=== PATIENT | male | born 1940 | race Caucasian/White ===

== ENCOUNTER 2016-09-14 09:54 | Day surgery (SDC) | payer MEDICARE ==
[~2016-09-14] VITALS: Ht 190.5 cm; Wt 108.0 kg
[~2016-09-14 09:54] MED LIST: AMLO10TA3 PO; ASCO-294 PO; ASPI325T32 PO; CHOL200047 PO; FERR325C PO; LOSA50TA37 PO; METO25TA6 PO; NITR0.4T6 SL; OMEG-38 PO; PANT40TA3 PO; PRAV40TA PO; SPIR25TA3 PO; Sodium Chloride LOK Flush 10 mL Syringe IV PRN; TAMS0.4C98 PO; UBID10CA4 PO; VITA400C66 PO; fentaNYL-PF 50 mCg/mL 2 mL Inj IVPUSH PRN
[2016-09-14 10:25] VITALS: BP 147/91; PULSE 56; RESP 16; O2SAT 97
[2016-09-14] MEDS: 0.9% Sodium Chloride 1,000 ML IV SCH ×3 (10:34→11:16)
[2016-09-14 11:26] VITALS: BP 124/77; PULSE 53; RESP 15; O2SAT 94
[2016-09-14 11:35] VITALS: BP 114/72; PULSE 53; RESP 15; O2SAT 94
[2016-09-14 11:46] VITALS: BP 121/79; PULSE 54; RESP 15; O2SAT 92
--- NOTE | 2016-09-14 11:52 | ENDO ---
[address] [address] ENDOSCOPY PROCEDURE PATIENT: OLIVE DELEON : 1940 MR#: [id number] ADMIT: 09/14/2016 JOB ID: [id number] DATE: 09/14/2016 PRIMARY PROVIDER: Maximiliano Espitia D.O. PROCEDURE: Esophagogastroduodenoscopy with biopsy. INDICATION: A 76-year-old male with longstanding reflux reporting for Raymond screening. He has not been able to decrease his pantoprazole down from 40 mg twice a day without becoming symptomatic. EQUIPMENT: GIF H 180 J. SEDATION: 1. 4 mg Versed. 2. 75 mcg fentanyl. COMPLICATIONS: None identified. PROCEDURAL INFORMATION: After the risks and benefits were explained, written and verbal informed consent was obtained. The patient was brought into the endoscopy suite and placed into the left lateral decubitus position. Sedation was achieved as above. The scope introduced into the mouth through the bite block, and advanced to the second portion the duodenum. The scope was slowly withdrawn to carefully examine the mucosa for any defects or lesions. Retroflexed views were accomplished in the stomach. The stomach was decompressed. Scope removed from the patient who tolerated the procedure reasonably well. He was somewhat combative and required an extra set of hands during the endoscopy to keep him from reaching up and attempting to pull the scope and/or adjust his mouth guard. FINDINGS: 1. Duodenum: No significant pathology identified from the bulb through to the second portion. 2. Stomach: The patient had an erosive nodular erythematous streaky gastropathy all through the antrum. One of these focal eroded nodules was biopsied and submitted for histopathology. Retroflexed views of the LES were otherwise unremarkable. The patient had a hiatal hernia, sliding in nature. No other gastric pathology identified. 3. Esophagus: The squamocolumnar junction generally correlated with the top of the gastric folds. The GEJ was at about 44 cm from the incisors. In the 7 o'clock location, there was perhaps very mild extension of the squamocolumnar junction up into the tubular esophagus. I biopsied the very apex of this in order to exclude the presence of specialized intestinal metaplasia. I did not see any evidence of acute erosive change. No strictures. No nodularity. No concerning features for neoplasia. The remainder of the esophagus appeared unremarkable. ENDOSCOPIC DIAGNOSES: 1. Sliding hiatal hernia. 2. 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 3. Erosive gastropathy. RECOMMENDATIONS: 1. Await histopathology. 2. If Raymond's is identified, then an appropriately timed surveillance will be arranged. 3. It would be reasonable to see how the patient does reducing pantoprazole down to the 20 mg tablet and continuing this at a twice daily schedule.
--- NOTE | 2016-09-15 13:56 | PATH ---
SURGICAL PATHOLOGY Attending Physician:Marc Oswald CASE STATUS: Signed Out PATIENT NAME: OLIVE DELEON PID: [id number] : 1940 DATE COLLECTED:09/14/2016 22:31 SPECIMEN: 1: Esophagus, Biopsy 2: Stomach, Antrum, Biopsy CLINICAL HISTORY: GASTRITIS 1). DISTAL ESOPHAGUS BIOPSY 2). ANTRAL BIOPSY FINAL DIAGNOSIS: 1.DISTAL ESOPHAGUS BIOPSY: SMALL FRAGMENT OF GASTRIC CARDIA-TYPE MUCOSA NEGATIVE FOR SPECIALIZED METAPLASIA OF DAVIDSON' S-TYPE ESOPHAGUS. No squamous mucosa identified. Negative for dysplasia and malignancy. 2.GASTRIC ANTRAL BIOPSY: MILD CHRONIC GASTRITIS, FOCALLY ACTIVE, WITH PROMINENT REACTIVE EPITHELIAL CHANGES. Immunohistochemistry for Helicobacter pending, to be reported by addendum. Negative for intestinal metaplasia. Negative for dysplasia and malignancy. [id number] NOTE: The reactive epithelial changes present in part 2 are quite prominent. Although such changes are not specific, the possibility that this biopsy is adjacent to an area of possible ulceration should be considered. Clinical correlation is suggested. GROSS DESCRIPTION: The specimen is received in two formalin filled containers labeled with the patient's name. 1). The specimen is sublabeled "distal esophagus" and consists of a 0.1 x 0.1 x 0.1 CM portion of tissue which is entirely submitted in cassette 1A. 2). The specimen is sublabeled "antrum" and consists of a 0.2 x 0.2 x 0.1 CM portion of tissue which is entirely submitted in cassette 2A. 09/15/2016 [facility] MICRO DESCRIPTION: See diagnosis. ICD-9 CODES: CPT CODES: 1: 49841 2: 25888, 30470, 46246 PROCEDURE/ADDENDA: Immunohistochemistry SPI Interpretation {Not Entered} Results-Comments 2.GASTRIC BIOPSY: AN IMMUNOSTAIN FOR HELICOBACTER ORGANISMS IS NEGATIVE. THE DIAGNOSIS IS UNCHANGED. This test was developed and its performance characteristics determined by [facility]. It has not been cleared or approved by the U. [place]. Food and Drug Administration. The FDA has determined that such clearance or approval is not necessary. This test is used for clinical purposes. It should not be regarded as investigational or for research. Electronically Signed Out Rasta Sandoval MD Electronically Signed Out Jefferson Bryant MD [facility] [address], [place] [address] Technical component performed at [facility], [address], [place], [address]
== END 2016-09-14 23:59 | disposition home or self-care (01) ==
LOC: END 09:54
PROVIDERS: ATTEND Internal Medicine Gastroenterology
DX: K29.50 Unspecified chronic gastritis without bleeding (principal); K31.9 Disease of stomach and duodenum, unspecified; K44.9 Diaphragmatic hernia without obstruction or gangrene; K21.9 Gastro-esophageal reflux disease without esophagitis; I10 Essential (primary) hypertension; I25.110 Atherosclerotic heart disease of native coronary artery with unstable angina pectoris; E78.5 Hyperlipidemia, unspecified; N40.0 Benign prostatic hyperplasia without lower urinary tract symptoms; Z95.5 Presence of coronary angioplasty implant and graft; Z79.82 Long term (current) use of aspirin
CPT/HCPCS: 43239; 88305; G0500; J7030